=== PATIENT | male | born 1990 | race Caucasian/White ===

== ENCOUNTER 2018-03-16 15:41 | Emergency (ER) | payer OTHER ==
[2018-03-16] MEDS: LIDOCAINE 2% MDV 20 ML VIAL SC (17:35)
== END 2018-03-16 18:32 | disposition home or self-care (01) ==
LOC: M ED 15:41
DX: S01.511A Laceration without foreign body of lip, initial encounter (principal); W22.8XXA Striking against or struck by other objects, initial encounter; Y92.89 Other specified places as the place of occurrence of the external cause
CPT/HCPCS: 12011